=== PATIENT | male | born 1960 | race Caucasian/White ===

== ENCOUNTER 2023-11-28 11:22 | Inpatient (IN) ==
[2023-11-28] MEDS: ZOLOFT PO SCH (13:21)
[2023-11-28] MEDS: SOLU-Medrol 40 MG VIAL IVP SCH (13:21)
[2023-11-28] MEDS: DUONEB 0.5 MG/3 MG (3 mL) NEB SCH (13:38)
[2023-11-28 13:39] LABS: BASOPHILS # (AUTO) 0.1 X10^3/uL (0.0-0.1); BASOPHILS % (AUTO) 0.5 % (0.2-1.0); EOSINOPHILS # (AUTO) 0.5 x10^3/uL (0.0-0.2); EOSINOPHILS % (AUTO) 3.5 % (0.9-2.9); HEMATOCRIT 40.1 % (42.0-54.0); HEMOGLOBIN 13.5 g/dL (13.5-18.0); LYMPHOCYTES # (AUTO) 1.6 X10^3/uL (1.3-2.9); LYMPHOCYTES % (AUTO) 12.2 % (21.0-51.0); MEAN CORPUSCULAR HEMOGLOBIN 31.1 pg (27.0-34.0); MEAN CORPUSCULAR HGB CONC 33.6 g/dL (33.0-35.0); MEAN CORPUSCULAR VOLUME 92.5 fL (80.0-100.0); MEAN PLATELET VOLUME 7.2 fL (7.4-11.0); MONOCYTES # (AUTO) 0.8 x10^3/uL (0.3-0.8); MONOCYTES % (AUTO) 5.9 % (0.0-13.0); NEUTROPHILS # (AUTO) 10.5 x10^3/uL (2.2-4.8); NEUTROPHILS % (AUTO) 77.9 % (42.0-75.0); PLATELET COUNT 337 X10^3/uL (150.0-450.0); RED BLOOD COUNT 4.33 X10^6/uL (4.7-6.0); RED CELL DISTRIBUTION WIDTH 14.1 % (11.6-16.5); WHITE BLOOD COUNT 13.5 X10^3/uL (3.6-10.0)
[2023-11-28 13:57] LABS: ALANINE AMINOTRANSFERASE 27 Units/L (12-78); ALBUMIN 3.4 g/dL (3.4-5.0); ALKALINE PHOSPHATASE 66 Units/L (46-116); ASPARTATE AMINO TRANSFERASE 16 Units/L (15-37); BLOOD UREA NITROGEN 19 mg/dL (7-18); CALCIUM 9.3 mg/dL (8.5-10.1); CARBON DIOXIDE 33.9 mmol/L (21-32); CHLORIDE 101 mmol/L (98-107); CREATININE 1.23 mg/dL (0.70-1.30); GLUCOSE 92 mg/dL (65-99); POTASSIUM 3.7 mmol/L (3.5-5.1); SODIUM 139 mmol/L (136-145); TOTAL PROTEIN 7.6 g/dL (6.4-8.2); eGFR NON BLACK RACES > 60 (>60)
[2023-11-28 14:29] LABS: ABG ALLEN TEST POS; ABG BASE EXCESS 5.9 mmol/L (-2.0-2.0); ABG HCO3 31.2 mmol/L (22-26)
[2023-11-28 14:51] VITALS: BMI 23.3
[2023-11-28] MEDS: NS 1,000 ML IV 1,000 ML IV SCH (15:59)
--- NOTE | 2023-11-28 16:08 | RAD ---
EXAM:CHEST, 1 VIEWHISTORY:COPD, SOB; APPEYCOMPARISON:05/11/2023FINDINGS:The trachea is midline. The cardiac silhouette is unremarkable. COPD. The lungs are clear without focal infiltrate or effusion. The bony thorax is unremarkable.IMPRESSION:COPD.No active cardiopulmonary diseaseTHIS IS AN ELECTRONICALLY VERIFIED FINAL REPORT11/28/2023 4:05 PM - Electronically signed by Marin Schneider MD
[2023-11-28] MEDS: MILK OF MAGNESIA PO PRN (17:57)
[2023-11-28] MEDS: CONSULT PHARMACY - POTASSIUM & MAGNESIUM XX SCH (18:52)
[2023-11-28] MEDS ORDERED: PULMICORT NEB TX 0.5 MG NEB ONE (19:30)
[2023-11-28] MEDS: PERCOCET TAB 5/325 MG PO PRN (19:40)
[2023-11-28] MEDS: PULMICORT NEB TX 0.5 MG NEB SCH (20:22)
[2023-11-28] MEDS: VALIUM PO SCH (21:45)
[2023-11-28] MEDS: KLOR-CON PO SCH (21:49)
[2023-11-29] MEDS: ROBITUSSIN DM PO PRN (00:45)
[2023-11-29 06:11] LABS: ALANINE AMINOTRANSFERASE 24 Units/L (12-78); ALBUMIN 2.8 g/dL (3.4-5.0); ALKALINE PHOSPHATASE 58 Units/L (46-116); ASPARTATE AMINO TRANSFERASE 13 Units/L (15-37); BLOOD UREA NITROGEN 17 mg/dL (7-18); CALCIUM 9.1 mg/dL (8.5-10.1); CARBON DIOXIDE 32.6 mmol/L (21-32); CHLORIDE 103 mmol/L (98-107); COR CA(FOR HYPOALB) 10.1 mg/dL (8.5-10.1); COR NA(FOR HYPERGLY) 143 mmol/L (136-145); CREATININE 1.01 mg/dL (0.70-1.30); GLUCOSE 131 mg/dL (65-99); POTASSIUM 4.6 mmol/L (3.5-5.1); SODIUM 142 mmol/L (136-145); TOTAL PROTEIN 6.9 g/dL (6.4-8.2); eGFR NON BLACK RACES > 60 (>60)
[2023-11-29 06:19] LABS: BASOPHILS % (AUTO) 0.4 % (0.2-1.0); HEMATOCRIT 36.5 % (42.0-54.0); HEMOGLOBIN 12.4 g/dL (13.5-18.0); LYMPHOCYTES % (AUTO) 8.8 % (21.0-51.0); MEAN CORPUSCULAR HEMOGLOBIN 30.8 pg (27.0-34.0); MEAN CORPUSCULAR VOLUME 90.7 fL (80.0-100.0); MEAN PLATELET VOLUME 7.4 fL (7.4-11.0); MONOCYTES # (AUTO) 0.2 x10^3/uL (0.3-0.8); MONOCYTES % (AUTO) 2.2 % (0.0-13.0); NEUTROPHILS # (AUTO) 10.1 x10^3/uL (2.2-4.8); NEUTROPHILS % (AUTO) 88.6 % (42.0-75.0); PLATELET COUNT 329 X10^3/uL (150.0-450.0); RED BLOOD COUNT 4.02 X10^6/uL (4.7-6.0); RED CELL DISTRIBUTION WIDTH 13.8 % (11.6-16.5); WHITE BLOOD COUNT 11.4 X10^3/uL (3.6-10.0)
[2023-11-29] MEDS: ROCEPHIN VIAL 1 GRAM 1 G in NS 100 ML IV 100 ML IV SCH (10:17)
[2023-11-29] MEDS: LOVENOX INJ 40 MG SYR SC SCH (10:17)
[2023-11-29] MEDS ORDERED: OMNIPAQUE 350 mg/mL 100 mL BTL 100 ML ONE (11:13)
[2023-11-29] MEDS ORDERED: NS 100 ML IV 100 ML ONE (11:13)
--- NOTE | 2023-11-29 12:49 | CT ---
EXAM:CHEST WITH CONTRASTHISTORY:COPD, increasing shortness of breathTECHNIQUE:Axial postcontrast images with coronal and sagittal reformats. Dose reduction procedures were used with mA/kv adjusted for body size.COMPARISON:NoneFINDINGS:Examination of the mediastinum demonstrated no evidence for mediastinal masses, enlarged mediastinal or enlarged hilar adenopathy or significant aortic abnormality. Coronary artery calcifications are present. There is a small hiatal hernia present. No pleural effusions are identified. No chest wall or axillary abnormality is identified. Those portions of the upper abdominal organs visualized appeared within normal limits with exception of a 9.5 mm nonobstructing left upper pole renal calculus. Examination of the lung bee demonstrated hyperinflation to be present. Changes of centrilobular emphysema are present in the upper lobes [id number]-left. No pulmonary masses, acute pulmonary infiltrates, areas of consolidation, bronchiectasis, or significant peribronchial thickening identified. No significant pulmonary nodules are identified.IMPRESSION:Emphysematous COPDNo acute infiltratesSmall hiatal herniaTHIS IS AN ELECTRONICALLY VERIFIED FINAL REPORT11/29/2023 12:45 PM - Electronically signed by Miki Kenny MD
--- NOTE | 2023-11-29 19:33 | DR.H&P ---
H&P History & Physical for Day of: H&P Date: 11/28/23 Chief Complaint Chief Complaint: Shortness of breath Generalized weakness Allergies Allergies Allergy/AdvReac Type Severity Reaction Status Date / Time morphine Allergy Unknown Verified 10/29/23 09:48 History of Present Illness History of Present Illness: Patient is a 63-year-old male with a past medical history of COPD, hypertension, depression, degenerative disc disease, presenting as a direct admission after failing outpatient treatment for COPD exacerbation. Patient was noted in clinic to be hypoxic. He was requiring more supplemental oxygen and was at 4 L nasal cannula. He was noted to have profound dyspnea. Patient was admitted for further evaluation and treatment. Labs/imaging: WBC 13.5, hemoglobin 13.5, platelets 337, sodium 139, potassium 3.7, creatinine 1.23, glucose 92, D-dimer 0.28, troponin negative, BNP 40, AIT pending, ABG: pH 7.43, pCO2 47, pO2 75, HCO3 31, O2 sat 95% on FiO2 28%. Chest x-ray negative for acute cardiopulmonary findings. Patient was admitted for COPD exacerbation. He was started on IV Solu-Medrol 40 mg every 8 H. Will start on antibiotics Rocephin. Scheduled bronchodilators. Respiratory therapy. Restart home medications. Wean/titrate supplemental oxygen as tolerated. Otherwise continue to closely monitor and follow-up labs/imaging. Past Medical History Past Medical History: Anxiety, Arthritis, COPD, Depression and Hypertension Past Surgical History Surgical History: Appendectomy and Ortho Surgery Social History Does patient currently use any type of tobacco product: No Have you used tobacco products in the last 12 months: No Type of Tobacco Use: None Does any household member use tobacco: No Alcohol Use: Rarely Drug Use: None Labs 11/29/23 05:50 11/29/23 05:50 Labs: 11/28/23 15:13 Sputum - Expectorated Sputum Sputum Culture - Preliminary 11/28/23 15:13 Sputum - Expectorated Sputum - Final Laboratory WBC 11.4 X10^3/uL (3.6-10.0) H 11/29/23 05:50 RBC 4.02 X10^6/uL (4.7-6.0) L 11/29/23 05:50 Hgb 12.4 g/dL (13.5-18.0) L 11/29/23 05:50 Hct 36.5 % (42.0-54.0) L 11/29/23 05:50 MCV 90.7 fL (80.0-100.0) 11/29/23 05:50 MCH 30.8 pg (27.0-34.0) 11/29/23 05:50 MCHC 34.0 g/dL (33.0-35.0) 11/29/23 05:50 RDW 13.8 % (11.6-16.5) 11/29/23 05:50 Plt Count 329 X10^3/uL (150.0-450.0) 11/29/23 05:50 MPV 7.4 fL (7.4-11.0) 11/29/23 05:50 Neut % (Auto) 88.6 % (42.0-75.0) H 11/29/23 05:50 Lymph % (Auto) 8.8 % (21.0-51.0) L 11/29/23 05:50 [place] % (Auto) 2.2 % (0.0-13.0) 11/29/23 05:50 Eos % (Auto) 0.0 % (0.9-2.9) L 11/29/23 05:50 Baso % (Auto) 0.4 % (0.2-1.0) 11/29/23 05:50 Neut # (Auto) 10.1 x10^3/uL (2.2-4.8) H 11/29/23 05:50 Lymph # (Auto) 1.0 X10^3/uL (1.3-2.9) L 11/29/23 05:50 [place] # (Auto) 0.2 x10^3/uL (0.3-0.8) L 11/29/23 05:50 Eos # (Auto) 0.0 x10^3/uL (0.0-0.2) 11/29/23 05:50 Baso # (Auto) 0.0 X10^3/uL (0.0-0.1) 11/29/23 05:50 Absolute Nucleated RBC 0.0 /100WBC 11/29/23 05:50 D-Dimer 0.28 ug/ml (0.0-0.57) 11/28/23 13:15 Sample Site Lrad 11/28/23 14:20 ABG pH 7.430 (7.35-7.45) 11/28/23 14:20 ABG pCO2 47.0 mmHg (35.0-45.0) H 11/28/23 14:20 ABG pO2 75.0 mmHg (80.0-100.0) L 11/28/23 14:20 ABG HCO3 31.2 mmol/L (22-26) H* 11/28/23 14:20 ABG O2 Saturation 95.0 % (90-100) 11/28/23 14:20 ABG Base Excess 5.9 mmol/L (-2.0-2.0) H 11/28/23 14:20 Sumanth Test Pos 11/28/23 14:20 A-a Gradient 66.0 mmHg 11/28/23 14:20 FiO2 28.0 11/28/23 14:20 Blood Gas Comments Rafa well ms 11/28/23 14:20 Sodium 142 mmol/L (136-145) 11/29/23 05:50 Corrected Sodium 143 mmol/L (136-145) 11/29/23 05:50 Potassium 4.6 mmol/L (3.5-5.1) 11/29/23 05:50 Chloride 103 mmol/L (98-107) 11/29/23 05:50 Carbon Dioxide 32.6 mmol/L (21-32) H 11/29/23 05:50 BUN 17 mg/dL (7-18) 11/29/23 05:50 Creatinine 1.01 mg/dL (0.70-1.30) 11/29/23 05:50 Est GFR (MDRD) Af Amer > 60 (>60) 11/29/23 05:50 Est GFR (MDRD) Non-Af > 60 (>60) 11/29/23 05:50 Glucose 131 mg/dL (65-99) H 11/29/23 05:50 Calcium 9.1 mg/dL (8.5-10.1) 11/29/23 05:50 Corrected Calcium 10.1 mg/dL (8.5-10.1) 11/29/23 05:50 Magnesium 2.2 mg/dL (2.0-2.9) 11/28/23 13:15 Total Bilirubin 0.70 mg/dL (0.2-1.0) 11/29/23 05:50 AST 13 Units/L (15-37) L 11/29/23 05:50 ALT 24 Units/L (12-78) 11/29/23 05:50 Alkaline Phosphatase 58 Units/L (46-116) 11/29/23 05:50 Troponin I High Sens 8.4 ng/L (4.0-60.0) 11/28/23 13:15 B-Natriuretic Peptide 40.2 pg/mL (0-79) 11/28/23 13:15 Total Protein 6.9 g/dL (6.4-8.2) 11/29/23 05:50 Albumin 2.8 g/dL (3.4-5.0) L 11/29/23 05:50 Globulin 4.1 g/dL (2.5-4.5) 11/29/23 05:50 Albumin/Globulin Ratio 0.7 Ratio (1.1-2.1) L 11/29/23 05:50 Resp Viral Panel (PCR) See scanned report 11/28/23 15:13 Review of Systems Constitutional: Weakness Eyes: No Symptoms Reported ENT: No Symptoms Reported Respiratory: Cough, Shortness of Breath and Wheezing Cardiovascular: No Symptoms Reported Gastrointestinal: No Symptoms Reported Genitourinary: No Symptoms Reported Musculoskeletal: No Symptoms Reported Skin: No Symptoms Reported Neurological: No Symptoms Reported Physical Exam Vital Signs: Vital Signs Temperature 97.6 F Temperature 98.1 F Pulse Rate [Apical] 83 Pulse Rate [Apical] 88 Pulse Rate 84 Respiratory Rate 20 Respiratory Rate 18 Blood Pressure [Right Arm] 124/73 Blood Pressure [Right Arm] 117/74 O2 Sat by Pulse Oximetry 96 O2 Sat by Pulse Oximetry 95 O2 Sat by Pulse Oximetry 96 Oriented: Normal Eyes: Normal Ear: Normal Nose: Normal Throat: Normal Respiratory: Diminished Throughout and Wheezes Throughout Cardiovascular: Normal : Normal Auscultation: Bowel Sounds: Normal Palpation: Normal Tenderness: Normal Skin: Normal Musculoskeletal: Normal Psychiatric: Normal Mood Description: Calm and Appropriate Affect: Normal Speech Pattern: Clear and Appropriate Assessment/Plan (1) COPD exacerbation: Status: Acute (2) Acute respiratory failure with hypoxia: Status: Acute (3) BRIGHT (obstructive sleep apnea): Status: Acute (4) Anxiety: Status: None (5) Chronic knee pain: Status: None (6) Primary hypertension: Status: None (7) Insomnia: Qualifiers: Insomnia type: primary Qualified Code(s): F51.01 - Primary insomnia Status: None Review H&P Reviewed: Yes Patient was examined?: Yes
--- NOTE | 2023-11-29 19:38 | PCM.PROG ---
Progress Note Progress Note for Day of Date of Exam: 11/29/23 Subjective Subjective: Patient is a 63-year-old male with a past medical history of COPD, hypertension, depression, degenerative disc disease, presenting as a direct admission after failing outpatient treatment for COPD exacerbation. This morning patient reports feeling a little better. He still is requiring 4 L of supplemental oxygen via nasal cannula. Labs/imaging: WBC 11.4, hemoglobin 12.4, platelets 329, sodium 142, potassium 4.6, creatinine 1.01, glucose 131, AIT pending. Patient is currently receiving IV Solu-Medrol 40 mg every 8 H. Antibiotics: Rocephin. Scheduled bronchodilators. Respiratory therapy. Home medications have been resumed. Plan to wean/titrate supplemental oxygen as tolerated. Will add smart vest today along with Tussionex. Will order CT of the chest for further evaluation along with echo. Otherwise continue to closely monitor and follow-up labs/imaging. Past Medical Family Social History Allergies: Allergies morphine Allergy (Unknown, Verified 10/29/23 09:48) Reason: Drug allergy Review of Systems ROS changes noted: see HPI Vital Signs and I&O's Vital Signs: Vital Signs Temperature 97.6 F Temperature 98.1 F Pulse Rate [Apical] 83 Pulse Rate [Apical] 88 Pulse Rate 84 Respiratory Rate 20 Respiratory Rate 18 Blood Pressure [Right Arm] 124/73 Blood Pressure [Right Arm] 117/74 O2 Sat by Pulse Oximetry 96 O2 Sat by Pulse Oximetry 95 O2 Sat by Pulse Oximetry 96 Intake and Output: Intake & Output 11/26/23 11/27/23 11/28/23 11/29/23 23:59 23:59 23:59 23:59 Intake Total 1473 / 1473 2993 / 2993 Output Total 350 / 350 900 / 900 Balance 1123 / 1123 2093 / 2093 Physical Exam Oriented: Normal Eyes: Normal Ear: Normal Nose: Normal Throat: Normal Respiratory: Diminished and Wheezes Cardiovascular: Normal : Normal Auscultation: Bowel Sounds: Normal Tenderness: Normal Skin: Normal Musculoskeletal: Normal Psychiatric: Normal Mood Description: Calm and Appropriate Affect: Normal Speech Pattern: Clear and Appropriate Laboratory and Diagnostics 11/29/23 05:50 11/29/23 05:50 Labs: 11/28/23 15:13 Sputum - Expectorated Sputum Sputum Culture - Preliminary 11/28/23 15:13 Sputum - Expectorated Sputum - Final Laboratory WBC 11.4 X10^3/uL (3.6-10.0) H 11/29/23 05:50 RBC 4.02 X10^6/uL (4.7-6.0) L 11/29/23 05:50 Hgb 12.4 g/dL (13.5-18.0) L 11/29/23 05:50 Hct 36.5 % (42.0-54.0) L 11/29/23 05:50 MCV 90.7 fL (80.0-100.0) 11/29/23 05:50 MCH 30.8 pg (27.0-34.0) 11/29/23 05:50 MCHC 34.0 g/dL (33.0-35.0) 11/29/23 05:50 RDW 13.8 % (11.6-16.5) 11/29/23 05:50 Plt Count 329 X10^3/uL (150.0-450.0) 11/29/23 05:50 MPV 7.4 fL (7.4-11.0) 11/29/23 05:50 Neut % (Auto) 88.6 % (42.0-75.0) H 11/29/23 05:50 Lymph % (Auto) 8.8 % (21.0-51.0) L 11/29/23 05:50 [place] % (Auto) 2.2 % (0.0-13.0) 11/29/23 05:50 Eos % (Auto) 0.0 % (0.9-2.9) L 11/29/23 05:50 Baso % (Auto) 0.4 % (0.2-1.0) 11/29/23 05:50 Neut # (Auto) 10.1 x10^3/uL (2.2-4.8) H 11/29/23 05:50 Lymph # (Auto) 1.0 X10^3/uL (1.3-2.9) L 11/29/23 05:50 [place] # (Auto) 0.2 x10^3/uL (0.3-0.8) L 11/29/23 05:50 Eos # (Auto) 0.0 x10^3/uL (0.0-0.2) 11/29/23 05:50 Baso # (Auto) 0.0 X10^3/uL (0.0-0.1) 11/29/23 05:50 Absolute Nucleated RBC 0.0 /100WBC 11/29/23 05:50 D-Dimer 0.28 ug/ml (0.0-0.57) 11/28/23 13:15 Sample Site Lrad 11/28/23 14:20 ABG pH 7.430 (7.35-7.45) 11/28/23 14:20 ABG pCO2 47.0 mmHg (35.0-45.0) H 11/28/23 14:20 ABG pO2 75.0 mmHg (80.0-100.0) L 11/28/23 14:20 ABG HCO3 31.2 mmol/L (22-26) H* 11/28/23 14:20 ABG O2 Saturation 95.0 % (90-100) 11/28/23 14:20 ABG Base Excess 5.9 mmol/L (-2.0-2.0) H 11/28/23 14:20 Sumanth Test Pos 11/28/23 14:20 A-a Gradient 66.0 mmHg 11/28/23 14:20 FiO2 28.0 11/28/23 14:20 Blood Gas Comments Rafa well ms 11/28/23 14:20 Sodium 142 mmol/L (136-145) 11/29/23 05:50 Corrected Sodium 143 mmol/L (136-145) 11/29/23 05:50 Potassium 4.6 mmol/L (3.5-5.1) 11/29/23 05:50 Chloride 103 mmol/L (98-107) 11/29/23 05:50 Carbon Dioxide 32.6 mmol/L (21-32) H 11/29/23 05:50 BUN 17 mg/dL (7-18) 11/29/23 05:50 Creatinine 1.01 mg/dL (0.70-1.30) 11/29/23 05:50 Est GFR (MDRD) Af Amer > 60 (>60) 11/29/23 05:50 Est GFR (MDRD) Non-Af > 60 (>60) 11/29/23 05:50 Glucose 131 mg/dL (65-99) H 11/29/23 05:50 Calcium 9.1 mg/dL (8.5-10.1) 11/29/23 05:50 Corrected Calcium 10.1 mg/dL (8.5-10.1) 11/29/23 05:50 Magnesium 2.2 mg/dL (2.0-2.9) 11/28/23 13:15 Total Bilirubin 0.70 mg/dL (0.2-1.0) 11/29/23 05:50 AST 13 Units/L (15-37) L 11/29/23 05:50 ALT 24 Units/L (12-78) 11/29/23 05:50 Alkaline Phosphatase 58 Units/L (46-116) 11/29/23 05:50 Troponin I High Sens 8.4 ng/L (4.0-60.0) 11/28/23 13:15 B-Natriuretic Peptide 40.2 pg/mL (0-79) 11/28/23 13:15 Total Protein 6.9 g/dL (6.4-8.2) 11/29/23 05:50 Albumin 2.8 g/dL (3.4-5.0) L 11/29/23 05:50 Globulin 4.1 g/dL (2.5-4.5) 11/29/23 05:50 Albumin/Globulin Ratio 0.7 Ratio (1.1-2.1) L 11/29/23 05:50 Resp Viral Panel (PCR) See scanned report 11/28/23 15:13 Plan (1) COPD exacerbation: Status: Acute (2) Acute respiratory failure with hypoxia: Status: Acute (3) BRIGHT (obstructive sleep apnea): Status: Acute (4) Anxiety: Status: None (5) Chronic knee pain: Status: None (6) Primary hypertension: Status: None (7) Insomnia: Status: None Qualifiers: Insomnia type: primary Qualified Code(s): F51.01 - Primary insomnia
[2023-11-30] MEDS: TUSSIONEX PENNKINETIC SUSP PO PRN (04:57)
[2023-11-30 06:12] LABS: BASOPHILS % (AUTO) 0.1 % (0.2-1.0); HEMATOCRIT 34.4 % (42.0-54.0); HEMOGLOBIN 11.7 g/dL (13.5-18.0); LYMPHOCYTES % (AUTO) 6.2 % (21.0-51.0); MEAN CORPUSCULAR HEMOGLOBIN 30.9 pg (27.0-34.0); MEAN CORPUSCULAR HGB CONC 34.2 g/dL (33.0-35.0); MEAN CORPUSCULAR VOLUME 90.5 fL (80.0-100.0); MEAN PLATELET VOLUME 7.3 fL (7.4-11.0); MONOCYTES # (AUTO) 0.4 x10^3/uL (0.3-0.8); MONOCYTES % (AUTO) 2.8 % (0.0-13.0); NEUTROPHILS # (AUTO) 14.7 x10^3/uL (2.2-4.8); NEUTROPHILS % (AUTO) 90.9 % (42.0-75.0); PLATELET COUNT 339 X10^3/uL (150.0-450.0); RED CELL DISTRIBUTION WIDTH 13.8 % (11.6-16.5); WHITE BLOOD COUNT 16.2 X10^3/uL (3.6-10.0)
[2023-11-30 06:31] LABS: ALANINE AMINOTRANSFERASE 26 Units/L (12-78); ALBUMIN 2.7 g/dL (3.4-5.0); ALKALINE PHOSPHATASE 53 Units/L (46-116); ASPARTATE AMINO TRANSFERASE 12 Units/L (15-37); BLOOD UREA NITROGEN 19 mg/dL (7-18); CARBON DIOXIDE 27.4 mmol/L (21-32); CHLORIDE 105 mmol/L (98-107); COR NA(FOR HYPERGLY) 142 mmol/L (136-145); GLUCOSE 121 mg/dL (65-99); POTASSIUM 4.2 mmol/L (3.5-5.1); SODIUM 141 mmol/L (136-145); TOTAL PROTEIN 6.4 g/dL (6.4-8.2); eGFR NON BLACK RACES > 60 (>60)
[2023-11-30 06:35] LABS: PLATELET MORPHOLOGY COMMENT NORMAL (NORMAL)
[2023-11-30] MEDS: COLACE CAP 100 MG PO PRN (11:21)
--- NOTE | 2023-11-30 19:26 | PCM.PROG ---
Progress Note Progress Note for Day of Date of Exam: 11/30/23 Subjective Subjective: Patient is a 63-year-old male with a past medical history of COPD, hypertension, depression, degenerative disc disease, presenting as a direct admission after failing outpatient treatment for COPD exacerbation. This morning he continues to report improvement in his breathing and symptoms. He is requiring 3 L of supplemental oxygen via nasal cannula. Labs/imaging: WBC 16.2, hemoglobin 11.7, platelets 339, sodium 141, potassium 4.2, creatinine 1.00, glucose 121, CT chest was obtained that revealed Emphysematous COPD. Echo EF 68%. AIT pending. Patient is currently receiving IV Solu-Medrol 40 mg every 8 H. Antibiotics: Rocephin. Scheduled bronchodilators. Respiratory therapy. Home medications have been resumed. Plan to wean/titrate supplemental oxygen as tolerated. Continue smart vest today along with Tussionex. Otherwise continue to closely monitor and follow-up labs/imaging. Past Medical Family Social History Allergies: Allergies morphine Allergy (Unknown, Verified 10/29/23 09:48) Reason: Drug allergy Review of Systems ROS changes noted: see HPI Vital Signs and I&O's Vital Signs: Vital Signs Temperature 98.0 F Temperature 97.2 F Pulse Rate [Apical] 77 Pulse Rate [Apical] 89 Respiratory Rate 18 Respiratory Rate 17 Blood Pressure [Right Arm] 112/58 Blood Pressure [Right Arm] 119/73 O2 Sat by Pulse Oximetry 95 O2 Sat by Pulse Oximetry 97 Intake and Output: Intake & Output 11/27/23 11/28/23 11/29/23 11/30/23 23:59 23:59 23:59 23:59 Intake Total 1473 / 1473 3706 / 3706 2169 / 2169 Output Total 350 / 350 1500 / 1500 900 / 900 Balance 1123 / 1123 2206 / 2206 1269 / 1269 Physical Exam Oriented: Normal Eyes: Normal Ear: Normal Nose: Normal Throat: Normal Respiratory: Diminished Cardiovascular: Normal : Normal Auscultation: Bowel Sounds: Normal Tenderness: Normal Skin: Normal Musculoskeletal: Normal Psychiatric: Normal Mood Description: Calm and Appropriate Affect: Normal Speech Pattern: Clear and Appropriate Laboratory and Diagnostics 11/30/23 05:45 11/30/23 05:45 Labs: 11/28/23 15:13 Sputum - Expectorated Sputum Sputum Culture - Preliminary 11/28/23 15:13 Sputum - Expectorated Sputum - Final Laboratory WBC 16.2 X10^3/uL (3.6-10.0) H 11/30/23 05:45 RBC 3.80 X10^6/uL (4.7-6.0) L 11/30/23 05:45 Hgb 11.7 g/dL (13.5-18.0) L 11/30/23 05:45 Hct 34.4 % (42.0-54.0) L 11/30/23 05:45 MCV 90.5 fL (80.0-100.0) 11/30/23 05:45 MCH 30.9 pg (27.0-34.0) 11/30/23 05:45 MCHC 34.2 g/dL (33.0-35.0) 11/30/23 05:45 RDW 13.8 % (11.6-16.5) 11/30/23 05:45 Plt Count 339 X10^3/uL (150.0-450.0) 11/30/23 05:45 Plt Count Comment Adequate (ADEQUATE) 11/30/23 05:45 MPV 7.3 fL (7.4-11.0) L 11/30/23 05:45 Neut % (Auto) 90.9 % (42.0-75.0) H 11/30/23 05:45 Lymph % (Auto) 6.2 % (21.0-51.0) L 11/30/23 05:45 [place] % (Auto) 2.8 % (0.0-13.0) 11/30/23 05:45 Eos % (Auto) 0.0 % (0.9-2.9) L 11/30/23 05:45 Baso % (Auto) 0.1 % (0.2-1.0) L 11/30/23 05:45 Neut # (Auto) 14.7 x10^3/uL (2.2-4.8) H 11/30/23 05:45 Lymph # (Auto) 1.0 X10^3/uL (1.3-2.9) L 11/30/23 05:45 [place] # (Auto) 0.4 x10^3/uL (0.3-0.8) 11/30/23 05:45 Eos # (Auto) 0.0 x10^3/uL (0.0-0.2) 11/30/23 05:45 Baso # (Auto) 0.0 X10^3/uL (0.0-0.1) 11/30/23 05:45 Absolute Nucleated RBC 0.0 /100WBC 11/30/23 05:45 Total Counted 100 11/30/23 05:45 Neutrophils % (Manual) 88 % (39-76) H 11/30/23 05:45 Lymphocytes % (Manual) 10 % (13-43) L 11/30/23 05:45 Monocytes % (Manual) 2 % (4-9) L 11/30/23 05:45 Plt Morphology Comment Normal (NORMAL) 11/30/23 05:45 RBC Morphology Normal (NORMAL) 11/30/23 05:45 D-Dimer 0.28 ug/ml (0.0-0.57) 11/28/23 13:15 Sample Site Lrad 11/28/23 14:20 ABG pH 7.430 (7.35-7.45) 11/28/23 14:20 ABG pCO2 47.0 mmHg (35.0-45.0) H 11/28/23 14:20 ABG pO2 75.0 mmHg (80.0-100.0) L 11/28/23 14:20 ABG HCO3 31.2 mmol/L (22-26) H* 11/28/23 14:20 ABG O2 Saturation 95.0 % (90-100) 11/28/23 14:20 ABG Base Excess 5.9 mmol/L (-2.0-2.0) H 11/28/23 14:20 Sumanth Test Pos 11/28/23 14:20 A-a Gradient 66.0 mmHg 11/28/23 14:20 FiO2 28.0 11/28/23 14:20 Blood Gas Comments Rafa well ms 11/28/23 14:20 Sodium 141 mmol/L (136-145) 11/30/23 05:45 Corrected Sodium 142 mmol/L (136-145) 11/30/23 05:45 Potassium 4.2 mmol/L (3.5-5.1) 11/30/23 05:45 Chloride 105 mmol/L (98-107) 11/30/23 05:45 Carbon Dioxide 27.4 mmol/L (21-32) 11/30/23 05:45 BUN 19 mg/dL (7-18) H 11/30/23 05:45 Creatinine 1.00 mg/dL (0.70-1.30) 11/30/23 05:45 Est GFR (MDRD) Af Amer > 60 (>60) 11/30/23 05:45 Est GFR (MDRD) Non-Af > 60 (>60) 11/30/23 05:45 Glucose 121 mg/dL (65-99) H 11/30/23 05:45 Calcium 9.0 mg/dL (8.5-10.1) 11/30/23 05:45 Corrected Calcium 10.0 mg/dL (8.5-10.1) 11/30/23 05:45 Magnesium 2.2 mg/dL (2.0-2.9) 11/30/23 05:45 Total Bilirubin 0.40 mg/dL (0.2-1.0) 11/30/23 05:45 AST 12 Units/L (15-37) L 11/30/23 05:45 ALT 26 Units/L (12-78) 11/30/23 05:45 Alkaline Phosphatase 53 Units/L (46-116) 11/30/23 05:45 Troponin I High Sens 8.4 ng/L (4.0-60.0) 11/28/23 13:15 B-Natriuretic Peptide 40.2 pg/mL (0-79) 11/28/23 13:15 Total Protein 6.4 g/dL (6.4-8.2) 11/30/23 05:45 Albumin 2.7 g/dL (3.4-5.0) L 11/30/23 05:45 Globulin 3.7 g/dL (2.5-4.5) 11/30/23 05:45 Albumin/Globulin Ratio 0.7 Ratio (1.1-2.1) L 11/30/23 05:45 Resp Viral Panel (PCR) See scanned report 11/28/23 15:13 Plan (1) COPD exacerbation: Status: Acute (2) Acute respiratory failure with hypoxia: Status: Acute (3) BRIGHT (obstructive sleep apnea): Status: Acute (4) Anxiety: Status: None (5) Chronic knee pain: Status: None (6) Primary hypertension: Status: None (7) Insomnia: Status: None Qualifiers: Insomnia type: primary Qualified Code(s): F51.01 - Primary insomnia
[2023-12-01 06:36] LABS: BASOPHILS % (AUTO) 0.1 % (0.2-1.0); HEMATOCRIT 35.3 % (42.0-54.0); HEMOGLOBIN 11.8 g/dL (13.5-18.0); LYMPHOCYTES # (AUTO) 0.8 X10^3/uL (1.3-2.9); LYMPHOCYTES % (AUTO) 5.5 % (21.0-51.0); MEAN CORPUSCULAR HEMOGLOBIN 30.8 pg (27.0-34.0); MEAN CORPUSCULAR HGB CONC 33.4 g/dL (33.0-35.0); MEAN CORPUSCULAR VOLUME 92.1 fL (80.0-100.0); MEAN PLATELET VOLUME 7.4 fL (7.4-11.0); MONOCYTES # (AUTO) 0.4 x10^3/uL (0.3-0.8); MONOCYTES % (AUTO) 2.8 % (0.0-13.0); NEUTROPHILS # (AUTO) 13.7 x10^3/uL (2.2-4.8); NEUTROPHILS % (AUTO) 91.6 % (42.0-75.0); PLATELET COUNT 354 X10^3/uL (150.0-450.0); RED BLOOD COUNT 3.83 X10^6/uL (4.7-6.0); RED CELL DISTRIBUTION WIDTH 13.7 % (11.6-16.5)
[2023-12-01 06:49] LABS: ALANINE AMINOTRANSFERASE 27 Units/L (12-78); ALBUMIN 2.7 g/dL (3.4-5.0); ALKALINE PHOSPHATASE 54 Units/L (46-116); ASPARTATE AMINO TRANSFERASE 13 Units/L (15-37); BLOOD UREA NITROGEN 22 mg/dL (7-18); CALCIUM 9.3 mg/dL (8.5-10.1); CARBON DIOXIDE 27.3 mmol/L (21-32); CHLORIDE 106 mmol/L (98-107); COR CA(FOR HYPOALB) 10.3 mg/dL (8.5-10.1); COR NA(FOR HYPERGLY) 142 mmol/L (136-145); CREATININE 1.07 mg/dL (0.70-1.30); GLUCOSE 125 mg/dL (65-99); SODIUM 141 mmol/L (136-145); TOTAL PROTEIN 6.4 g/dL (6.4-8.2); eGFR NON BLACK RACES > 60 (>60)
[2023-12-01 07:37] LABS: PLATELET MORPHOLOGY COMMENT NORMAL (NORMAL)
--- NOTE | 2023-12-01 09:42 | RAD ---
EXAM:AP chestHISTORY:COPD short of breathCOMPARISON:11/28/2023FINDINGS:Hear t size and configuration normal. The lungs remain symmetrically hyperinflated without definite pneumonia, CHF/edema or pleural effusion.IMPRESSION:Findings consistent with COPD. No acute component identified.THIS IS AN ELECTRONICALLY VERIFIED FINAL REPORT12/01/2023 9:39 AM - Electronically signed by Pastor Elizabeth MD
[2023-12-01 11:41] VITALS: TEMP 97.4
[2023-12-01 11:42] VITALS: BP 143/74; PULSE 80; RESP 18; O2SAT 93
== END 2023-12-01 12:10 | disposition home or self-care (01) | DRG 190 ==
LOC: MED/SURG → OBSVTOIN 11:47
PROVIDERS: ADMIT Family Medicine; ATTEND Family Medicine
DX: F41.8 Other specified anxiety disorders; J96.01 Acute respiratory failure with hypoxia; K44.9 Diaphragmatic hernia without obstruction or gangrene; F51.01 Primary insomnia; I10 Essential (primary) hypertension; G47.33 Obstructive sleep apnea (adult) (pediatric); J43.8 Other emphysema; F32.89 Other specified depressive episodes; I34.0 Nonrheumatic mitral (valve) insufficiency; J44.1 Chronic obstructive pulmonary disease with (acute) exacerbation